=== PATIENT | female | born 1980 | race Caucasian/White ===

== ENCOUNTER 2016-08-30 10:01 | Outpatient (CLI) | payer MEDICAID | END 2016-08-30 10:02 | disposition home or self-care (01) | LOC: SC 10:01 | PROVIDERS: ATTEND Internal Medicine Pulmonary Disease | DX: G47.8 Other sleep disorders (principal); G47.10 Hypersomnia, unspecified; R06.83 Snoring | CPT/HCPCS: 99203 ==

== ENCOUNTER 2017-04-15 15:01 | Outpatient (CLI) | payer MEDICAID ==
[2017-04-16 12:41] LABS: HIV AG/AB 4TH GEN NON-REACTIVE (NON-REACTIVE)
== END 2017-04-15 15:02 | disposition home or self-care (01) ==
LOC: LAB.N 15:01
PROVIDERS: ATTEND Nurse Practitioner Gerontology
DX: Z11.3 Encounter for screening for infections with a predominantly sexual mode of transmission (principal)
CPT/HCPCS: 36415; 81599; 87389; 87491; 87591

== ENCOUNTER 2017-08-02 17:37 | Emergency (ER) | payer MEDICAID ==
[2017-08-02 17:51] VITALS: BP 96/74
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
== END 2017-08-02 18:06 | disposition home or self-care (01) ==
LOC: ED 17:37
DX: T69.8XXA Other specified effects of reduced temperature, initial encounter (principal); X31.XXXA Exposure to excessive natural cold, initial encounter
CPT/HCPCS: 99282

== ENCOUNTER 2018-08-31 11:28 | Outpatient (CLI) | payer MEDICAID ==
--- NOTE | 2018-09-03 16:48 | XRAY Report ---
Reason: chronic LBP Procedure Date: 08/31/2018 Accession Number: [id number] / [id number] Procedure: XRN - Lumbar Spine 2 View CPT Code: FULL RESULT: EXAM: LUMBOSACRAL SPINE RADIOGRAPHY EXAM DATE: 08/31/2018 11:52 AM. CLINICAL HISTORY: Chronic low back pain. COMPARISONS: None. TECHNIQUE: 3 views. FINDINGS: Alignment: There is very mild right convex scoliosis of the lumbar spine, centered at L4. No fracture or suspicious bone lesion is evident on this examination. Bones: Five [id number] lumbar vertebral bodies are present. No fractures or bone lesions. Disks: Mild endplate osteophytosis noted within the upper lumbar spine, notably at L2-L3. Facets: Lower lumbar hypertrophic facet arthropathy. Sacroiliac joints: No diastases demonstrated. Soft Tissues: IUD projects over the central pelvis. IMPRESSION: Mild mid and upper lumbar degenerative change. RADIA
== END 2018-08-31 11:29 | disposition home or self-care (01) ==
LOC: DI.N 11:28
PROVIDERS: ATTEND Nurse Practitioner Gerontology
DX: M47.816 Spondylosis without myelopathy or radiculopathy, lumbar region (principal); M51.36 Other intervertebral disc degeneration, lumbar region
CPT/HCPCS: 72100

== ENCOUNTER 2018-09-19 08:36 | Outpatient (CLI) | payer MEDICAID ==
--- NOTE | 2018-09-19 09:37 | Mammography Report ---
Reason: RT BREAST PAIN Procedure Date: 09/19/2018 Accession Number: [id number] / [id number] Procedure: JAMES - Diagnostic Dig Bilat CPT Code: FULL RESULT: EXAM: Diagnostic Dig Bilat DATE: 09/19/2018 9:31 AM CLINICAL HISTORY: Right breast pain. TECHNIQUE: (B) - Bilateral CC and MLO 2-D/3-D views were obtained. COMPARISON: None PARENCHYMAL PATTERN: (A) - The breasts demonstrate scattered fibroglandular densities bilaterally. FINDINGS: No mammographic finding on either 2-D or 3-D mammography to explain right breast pain. There are no suspicious masses, calcifications, or areas of distortion. IMPRESSION: Negative examination. BI-RADS category 1. RECOMMENDATION: (ANNUAL) - Recommend routine annual screening mammography. BI-RADS CATEGORY: (1) - Negative. STANDARD QUALIFYING STATEMENTS: 1. This examination was not reviewed with the aid of Computer-Aided Detection (CAD). 2. A negative or benign imaging report should not preclude biopsy if clinically suspicious findings are present. 3. Dense breasts may obscure an underlying neoplasm. 4. This examination was reviewed with the aid of 3D breast imaging (tomosynthesis).
== END 2018-09-19 08:37 | disposition home or self-care (01) ==
LOC: DI 08:36
PROVIDERS: ATTEND Nurse Practitioner Gerontology
DX: N64.4 Mastodynia (principal)
CPT/HCPCS: 77066

== ENCOUNTER 2018-12-19 07:07 | Day surgery (SDC) | payer MEDICAID ==
[2018-12-19] MEDS ORDERED: MIDAZOLAM 2 MG/2 ML VIAL IVP ONE (07:08)
[2018-12-19] MEDS ORDERED: PROPOFOL 200 MG/20 ML VIAL IVP ONE (07:08)
[2018-12-19] MEDS ORDERED: fentaNYL 100 MCG/2 ML VIAL IVP ONE (07:08)
[2018-12-19] MEDS ORDERED: ONDANSETRON 4 MG/2 ML VIAL IVP ONE (07:08)
[2018-12-19] MEDS ORDERED: LACTATED RINGERS 1,000 ML IV ONE (07:17)
--- NOTE | 2018-12-19 08:03 | ANESTHESIA ---
Pre-Anesthesia VS, & Labs - Diagnosis Left carpal tunnel syndrome - Procedure Left carpal tunnel release Vital Signs: Temp Pulse Resp BP Pulse Ox 36.2 C L 64 16 117/57 L 96 12/19/18 07:28 12/19/18 07:28 12/19/18 07:28 12/19/18 07:28 12/19/18 07:28 Height 5 ft 2 in Weight (kg) 101.6 kg Body Mass Index 43.9 - NPO >8 hours - Is Patient ?: Waiver signed Home Medications and Allergies Venlafaxine [Effexor] 75 mg PO DAILY 08/02/17 lamoTRIgine [LaMICtal] 200 mg PO DAILY 08/02/17 Allergies/Adverse Reactions: Allergies Allergy/AdvReac Type Severity Reaction Status Date / Time shellfish derived Allergy Anaphylaxis Verified 12/13/18 13:50 tramadol Allergy Hallucinati Verified 12/13/18 13:50 ons Anes History & Medical History - Anesthetic History Anesthesia Complications: reports: No previous complications - Medical History Cardiovascular: reports: None Pulmonary: reports: None Gastrointestinal: reports: None, Other (Morbid Obesity, bmi>40) Urinary: reports: None Neuro: reports: None Musculoskeletal: reports: Osteoarthritis Endocrine/Autoimmune: reports: None Blood Disorders: reports: None Skin: reports: None Smoking Status: Current every day smoker (Vapes) Psychosocial: reports: Depression (history of bipolar), Alcohol (3 glasses of wine per week), Other (PTSD) - Surgical History General: Appendectomy Eyes Ears Nose Throat (EENT): Other (strabismus surgery at 3 years of age) Gynecologic: section, Other (hysterscopy) Exam General: Alert, Oriented x3, Cooperative, No acute distress Dental: WNL Mouth Openin Fingerbreadth Mallampati classification: II Thyromental Distance: greater than 6 cm Respiratory: Lungs clear, Normal breath sounds, No respiratory distress, No accessory muscle use Cardiovascular: Regular rate, Normal S1, Normal S2, No murmurs Mental/Cognitive Status: Alert/Oriented X3, Normal for patient Plan Anesthesia Type: MAC Consent for Procedure(s) Verified and Reviewed: Yes Code Status: Attempt Resuscitation ASA classification: 2-Mild systemic disease Is this case an emergency?: No
[2018-12-19] MEDS ORDERED: BUPIVACAINE 0.5% PF 10 ML VIAL ONE (09:17)
[2018-12-19] MEDS ORDERED: LIDOCAINE-MPF 1% 30 ML VIAL ONE (09:17)
[2018-12-19] MEDS ORDERED: BUPIVACAINE 0.5% PF 10 ML VIAL IM ONE (09:58)
[2018-12-19] MEDS ORDERED: LIDOCAINE 1% 50 ML MDV SUBQ ONE (09:58)
[2018-12-19] MEDS ORDERED: oxyCODONE 5 MG TABLET PO PRN (10:17)
--- NOTE | 2018-12-19 10:21 | OPERATIVE REPORT ---
Operative Report - General Procedure Date: 12/19/18 Planned Procedure: Left carpal tunnel release Pre-Op Diagnosis: Bilateral carpal tunnel syndrome Procedure Performed: Left carpal tunnel release Post Op Diagnosis: Same - Procedure Note Primary Surgeon: Steve Stauffer MD Anesthesia Provider: Zach Parker CRNA Anesthesia Technique: MAC IV Fluids (mL): 300 Estimated Blood Loss (mL): 15 Complications: None
--- NOTE | 2018-12-19 10:36 | OPERATIVE REPORT ---
DATE OF SERVICE: 12/19/2018 Physician: Dylan Stauffer MD PREOPERATIVE DIAGNOSIS: Bilateral carpal tunnel syndromes. POSTOPERATIVE DIAGNOSIS: Bilateral carpal tunnel syndromes. PROCEDURE PERFORMED: Left carpal tunnel release. SURGEON: Dylan Stauffer MD ANESTHESIA: MAC with local anesthesia. DESCRIPTION OF PROCEDURE: The patient was taken to the operating room on the morning of 12/19/2018, where she had a local anesthetic block placed in the vicinity of her palmar incision. Approximately 4 mL of 1:1 ratio of 0.5% Marcaine and 1% lidocaine without epinephrine was utilized. We then preppe d and draped the hand free in the usual fashion for the procedure after we placed the arm pneumatic t ourniquet on the left upper extremity. After we obtained a satisfactory local anesthesia in her proximal palm, we then proceeded to incise t he skin with the scalpel in a longitudinal curvilinear incision. We transected the superficial marks r fascia and then made a small marti into the deep transverse carpal ligament. Protecting the content s of the carpal tunnel with a hemostat, we then sharply transected the deep transverse carpal ligamen t on our hemostat. The proximal portion of our ligament was then released using tenotomy scissors. At the end of our release, we could identify the median nerve. There was some evidence of a vascular blush after the release. Minimal hourglass wasting was noted of the median nerve. We then proceede d to irrigate the wound out thoroughly with saline. We then closed the wound using horizontal interr upted mattress stitches of 4-0 nylon to approximate the skin edge. We then dressed the wound with Xe roform gauze, 4 x 4's, and sterile Webril. A volar forearm plaster splint was then made. The tourni quet was released as we were dressing the wound. TOURNIQUET TIME: 14 minutes. ESTIMATED BLOOD LOSS: 15 mL. REPLACEMENT: 300 mL crystalloid. INTRAOPERATIVE COMPLICATIONS: None. PLAN: The patient will be discharged when stable. Follow up in the [facility]opedic Clinic in 2 weeks' ti me. TD: 12/19/2018 10:26
[2018-12-19] MEDS ORDERED: oxyCODONE 5 MG TABLET ONE (10:50)
[2018-12-19 11:02] VITALS: BP 110/70
== END 2018-12-19 07:08 | disposition home or self-care (01) ==
LOC: SDS 07:07
PROVIDERS: ATTEND Orthopaedic Surgery
PROC: 01N50ZZ Release Median Nerve, Open Approach (ICD-10-PCS; principal; 2018-12-19 08:30)
DX: G56.03 Carpal tunnel syndrome, bilateral upper limbs (principal); F31.9 Bipolar disorder, unspecified; E66.01 Morbid (severe) obesity due to excess calories; Z68.41 Body mass index [BMI] 40.0-44.9, adult; F17.290 Nicotine dependence, other tobacco product, uncomplicated
CPT/HCPCS: 64721; A9270; J7120

== ENCOUNTER 2019-01-09 07:19 | Day surgery (SDC) | payer MEDICAID ==
[~2019-01-09 07:19] MED LIST: CEFAZOLIN SODIUM IN 0.9 % NACL 2 GM/100 ML BAG IV ONE
[2019-01-09] MEDS ORDERED: MIDAZOLAM 2 MG/2 ML VIAL IVP ONE (07:20)
[2019-01-09] MEDS ORDERED: fentaNYL 100 MCG/2 ML VIAL IVP ONE (07:20)
[2019-01-09] MEDS ORDERED: LACTATED RINGERS 1,000 ML IV ONE (07:46)
[2019-01-09] MEDS ORDERED: BUPIVACAINE 0.25% PF 30 ML VIAL ONE (08:30)
--- NOTE | 2019-01-09 08:34 | ANESTHESIA ---
Pre-Anesthesia VS, & Labs - Diagnosis R CTS - Procedure R CTR Vital Signs: Temp Pulse Resp BP Pulse Ox 36.5 C 77 16 113/61 98 01/09/19 07:47 01/09/19 07:47 01/09/19 07:47 01/09/19 07:47 01/09/19 07:47 Height 5 ft 2 in Weight (kg) 99 kg Body Mass Index 43.9 - NPO >8 hours - Is Patient ?: Waiver signed Home Medications and Allergies Venlafaxine [Effexor] 75 mg PO DAILY 08/02/17 lamoTRIgine [LaMICtal] 200 mg PO DAILY 08/02/17 Allergies/Adverse Reactions: Allergies Allergy/AdvReac Type Severity Reaction Status Date / Time shellfish derived Allergy Anaphylaxis Verified 12/13/18 13:50 tramadol Allergy Hallucinati Verified 12/13/18 13:50 ons Anes History & Medical History - Anesthetic History Anesthesia Complications: reports: No previous complications Family history of Anesthesia Complications: Denies Family history of Malignant Hyperthermia: Denies - Medical History Cardiovascular: reports: None Pulmonary: reports: None Gastrointestinal: reports: None, Other (BMI >40) Urinary: reports: None Neuro: reports: None Musculoskeletal: reports: Osteoarthritis Endocrine/Autoimmune: reports: None Blood Disorders: reports: None Skin: reports: None Smoking Status: Current every day smoker (Vapes) - Surgical History General: Appendectomy Eyes Ears Nose Throat (EENT): Other Gynecologic: section, Other Orthopedic: Carpal Tunnel surgery Exam General: Alert, Oriented x3, Cooperative Dental: WNL Mouth Openin Fingerbreadth Neck Mobility: Normal Mallampati classification: II Thyromental Distance: 4-6 cm Respiratory: Lungs clear, Normal breath sounds, No respiratory distress Cardiovascular: Regular rate Neurological: Normal speech Cognitive Status: Within normal limits Plan Anesthesia Type: MAC Consent for Procedure(s) Verified and Reviewed: Yes Code Status: Attempt Resuscitation ASA classification: 2-Mild systemic disease Is this case an emergency?: No
[2019-01-09] MEDS ORDERED: LIDOCAINE MPF 2%-EPI 1:200000 20 ML VIAL ONE (08:36)
[2019-01-09] MEDS ORDERED: BUPIVACAINE 0.25% PF 30 ML VIAL SUBQ ONE (08:58)
[2019-01-09 09:34] VITALS: BP 110/54
[2019-01-09] MEDS ORDERED: LIDOCAINE 2%-EPI 1:100000 20 ML MDV SUBQ ONE (09:36)
[2019-01-09] MEDS ORDERED: ONDANSETRON 4 MG/2 ML VIAL IVP PRN (09:37)
[2019-01-09] MEDS ORDERED: HYDROmorphone 0.5 MG/0.5 ML SYRINGE IVP PRN (09:37)
[2019-01-09] MEDS ORDERED: oxyCODONE 5 MG TABLET PO PRN (09:37)
--- NOTE | 2019-01-09 09:42 | OPERATIVE REPORT ---
Operative Report - General Procedure Date: 01/09/19 Planned Procedure: Right carpal tunnel release Pre-Op Diagnosis: Right carpal tunnel syndrome Procedure Performed: Right carpal tunnel release - Procedure Note Primary Surgeon: Steve Stauffer MD Anesthesia Provider: Cherelle Marion CRNA Anesthesia Technique: MAC IV Fluids (mL): 500 Estimated Blood Loss (mL): 5 Complications: None
--- NOTE | 2019-01-09 10:08 | OPERATIVE REPORT ---
DATE OF SERVICE: 01/09/2019 Physician: Dylan Stauffer MD PREOPERATIVE DIAGNOSIS: Right carpal tunnel syndrome. POSTOPERATIVE DIAGNOSIS: Right carpal tunnel syndrome. PROCEDURE PERFORMED: Right carpal tunnel release. SURGEON: Dylan Stauffer MD ANESTHESIA: Local anesthesia with mild sedation. DESCRIPTION OF PROCEDURE: Patient was taken to the operating room on the morning of 01/09/2019, wher e she was placed under light sedation. After local anesthetic was applied to the palmar area of her right hand/wrist. We used a total of 6 mL of a 1:1 ratio of 0.25% Marcaine, 2% lidocaine with epinep hrine. The hand and wrist were then prepped free in the usual fashion for our procedure. After adeq uate anesthesia was obtained, we then did a curvilinear skin incision in the proximal palm of the rig ht hand, along the fourth ray. Incision was then made through the skin, through the superficial palm ar fascia and then a small marti made in the deep transverse carpal ligament. Protecting the contents within the carpal tunnel with a hemostat, we then used a 15 blade to sharply transect 90% of the aristides p transverse carpal ligament. The proximal 10% was then released using tenotomy scissors. We then i nspected the contents of the tunnel. We could see an hourglass constriction of the median nerve. Mi ld dissection showed some fibrotic changes seen in the aponeurosis of the median nerve. This was rel eased gently with tenotomy scissors. After the release, we notice a hypervascular blush. Rest of th e contents of the canal were unremarkable. We irrigated the wound with saline, then closed the skin using interrupted horizontal mattress stitches of 4-0 nylon suture. We then dressed the wound with X eroform gauze, 4 x 4's, sterile Webril, and hand was placed in a volar wrist splint. Tourniquet was released after we had closed the skin incision. Patient was taken to recovery room in satisfactory c ondition. ESTIMATED BLOOD LOSS: 5 mL TOURNIQUET TIME: 22 minutes. REPLACEMENT: 500 mL crystalloid. COMPLICATIONS: None. PLAN: Patient will be discharged when comfortable. Follow up in Orthopedic Clinic in 2 weeks' time for suture removal and clinical check. TD: 01/09/2019 09:48
== END 2019-01-09 07:20 | disposition home or self-care (01) ==
LOC: SDS 07:19
PROVIDERS: ATTEND Orthopaedic Surgery
PROC: 01N50ZZ Release Median Nerve, Open Approach (ICD-10-PCS; principal; 2019-01-09 08:30)
DX: G56.01 Carpal tunnel syndrome, right upper limb (principal); F17.290 Nicotine dependence, other tobacco product, uncomplicated
CPT/HCPCS: 64721; J0690; J7120

== ENCOUNTER 2019-10-30 11:50 | Outpatient (CLI) | payer MEDICAID | END 2019-10-30 23:59 | disposition home or self-care (01) | LOC: COV 11:50 | PROVIDERS: ATTEND Family Medicine | DX: R05 Cough (principal); R06.02 Shortness of breath; R53.83 Other fatigue; R19.7 Diarrhea, unspecified; R09.81 Nasal congestion; R11.0 Nausea; Z20.828 Contact with and (suspected) exposure to other viral communicable diseases ==